=== PATIENT | female | born 1990 | race Caucasian/White ===

== ENCOUNTER → 2018-05-15 | Emergency (ER) | payer OTHER ==
[~2018-05-15] VITALS: Ht 154.9 cm; Wt 72.6 kg
== END | disposition left against medical advice (07) ==
LOC: ER 21:28
DX: Z53.20 Procedure and treatment not carried out because of patient's decision for unspecified reasons (principal)

== ENCOUNTER 2018-08-16 07:05 | Emergency (ER) | payer OTHER ==
[~2018-08-16] VITALS: Ht 154.9 cm; Wt 70.8 kg
[2018-08-16] MEDS ORDERED: [UNRECOGNIZED DRUG - OTHER] (07:25)
== END 2018-08-16 11:58 | disposition home or self-care (01) ==
LOC: ER 07:05
DX: R20.0 Anesthesia of skin (principal); G51.0 Bell's palsy

== ENCOUNTER 2019-01-29 14:40 | Outpatient (CLI) | payer OTHER ==
[~2019-01-29 14:40] MED LIST: [UNRECOGNIZED DRUG - OTHER]
== END 2019-01-29 14:53 | disposition home or self-care (01) ==
LOC: LAB 14:40
DX: R00.8 Other abnormalities of heart beat (principal); R05 Cough; J11.1 Influenza due to unidentified influenza virus with other respiratory manifestations

== ENCOUNTER → 2019-03-26 06:44 | Outpatient (CLI) | payer OTHER | END | disposition home or self-care (01) | LOC: LAB 06:44 | DX: E16.2 Hypoglycemia, unspecified (principal); N39.0 Urinary tract infection, site not specified; E78.2 Mixed hyperlipidemia; E56.9 Vitamin deficiency, unspecified; E55.9 Vitamin D deficiency, unspecified; E03.8 Other specified hypothyroidism; R97.1 Elevated cancer antigen 125 [CA 125]; R53.1 Weakness; E66.01 Morbid (severe) obesity due to excess calories; Z11.3 Encounter for screening for infections with a predominantly sexual mode of transmission ==

== ENCOUNTER 2019-10-04 15:29 | Emergency (ER) | payer OTHER ==
[~2019-10-04] VITALS: Ht 154.9 cm; Wt 69.9 kg
[2019-10-04] MEDS ORDERED: URIN D.S. TABL1 EACH PO (22:09)
[2019-10-04] MEDS ORDERED: KETO10TA2 PO (22:09)
== END 2019-10-04 22:40 ==
LOC: ER 15:29
DX: M54.5 Low back pain (principal); N39.0 Urinary tract infection, site not specified; Z20.828 Contact with and (suspected) exposure to other viral communicable diseases

== ENCOUNTER 2019-11-10 11:00 | Outpatient (CLI) | payer OTHER | END 2019-11-10 15:00 | disposition home or self-care (01) | LOC: PPH VACUNA 11:00 | DX: Z23 Encounter for immunization (principal) ==

== ENCOUNTER → 2019-11-10 | Outpatient (CLI) | payer OTHER ==
[~2019-11-10] MED LIST changes: +KETO10TA2 PO; +URIN D.S. TABL1 EACH PO
== END | disposition home or self-care (01) ==
LOC: PPH VACUNA 11:15
DX: Z23 Encounter for immunization (principal)

== ENCOUNTER 2020-02-23 14:10 | Outpatient (CLI) | payer OTHER | END 2020-02-23 14:11 | disposition home or self-care (01) | LOC: PPH VACUNA 14:10 | DX: Z23 Encounter for immunization (principal) ==

== ENCOUNTER 2020-08-26 07:27 | Outpatient (CLI) | payer OTHER | END 2020-08-26 07:28 | disposition home or self-care (01) | LOC: MAMO-SONO 07:27 | DX: N64.4 Mastodynia (principal); Z12.31 Encounter for screening mammogram for malignant neoplasm of breast ==

== ENCOUNTER → 2020-08-29 08:06 | Outpatient (CLI) | payer OTHER | END | disposition home or self-care (01) | LOC: LAB 08:06 | PROVIDERS: ATTEND Obstetrics & Gynecology | DX: E16.1 Other hypoglycemia (principal); N39.0 Urinary tract infection, site not specified; E78.2 Mixed hyperlipidemia; E56.8 Deficiency of other vitamins; E55.9 Vitamin D deficiency, unspecified; E03.8 Other specified hypothyroidism; R97.1 Elevated cancer antigen 125 [CA 125]; R53.1 Weakness; E66.01 Morbid (severe) obesity due to excess calories; Z11.3 Encounter for screening for infections with a predominantly sexual mode of transmission ==

== ENCOUNTER 2020-12-02 13:50 | Outpatient (CLI) | payer OTHER | END 2020-12-02 14:05 | disposition home or self-care (01) | LOC: PPH VACUNA 13:50 | PROVIDERS: ATTEND Emergency Medicine Pediatric Emergency Medicine | DX: Z23 Encounter for immunization (principal) ==

== ENCOUNTER 2020-12-09 08:00 | Outpatient (CLI) | payer OTHER | END 2020-12-09 08:30 | disposition home or self-care (01) | LOC: PPH VACUNA 08:00 | PROVIDERS: ATTEND Emergency Medicine Pediatric Emergency Medicine | DX: Z23 Encounter for immunization (principal) ==

== ENCOUNTER 2021-01-27 19:23 | Emergency (ER) | payer OTHER ==
[~2021-01-27] VITALS: Ht 154.9 cm; Wt 72.6 kg
[2021-01-27] MEDS ORDERED: [UNRECOGNIZED DRUG - OTHER] (20:13)
[2021-01-27] MEDS ORDERED: NORFLEX100MG PO (21:53)
[2021-01-27] MEDS ORDERED: CYCLOBENZAPRINE10 MG PO (21:53)
== END 2021-01-27 21:57 | disposition home or self-care (01) ==
LOC: ER 19:23
DX: M25.561 Pain in right knee (principal)

== ENCOUNTER 2021-04-12 07:12 | Outpatient (CLI) | payer OTHER ==
[~2021-04-12 07:12] MED LIST changes: +CYCLOBENZAPRINE10 MG PO; +NORFLEX100MG PO; +[UNRECOGNIZED DRUG - OTHER]
== END 2021-04-12 07:13 | disposition home or self-care (01) ==
LOC: SONOGRAMA 07:12
DX: N63 Unspecified lump in breast (principal)